=== PATIENT | female | born 1975 | race Caucasian/White ===

== ENCOUNTER 2018-02-21 05:55 | Day surgery (SDC) | payer OTHER ==
[~2018-02-21 05:55] MED LIST: CIPRO750 MG PO; FLEXERIL10 MG PO; MOTRIN800 MG PO
== END 2018-02-21 16:30 | disposition home or self-care (01) ==
LOC: CIR.AMB 05:55
DX: N93.8 Other specified abnormal uterine and vaginal bleeding (principal)

== ENCOUNTER 2020-02-14 07:14 | Outpatient (CLI) | payer OTHER | END 2020-02-14 07:51 | disposition home or self-care (01) | LOC: MRI 07:14 | PROVIDERS: ATTEND Orthopaedic Surgery | DX: M25.561 Pain in right knee (principal); M25.562 Pain in left knee | CPT/HCPCS: 73718 ==